=== PATIENT | female | born 1960 | race Caucasian/White ===

== ENCOUNTER → 2020-10-03 | Day surgery (SDC) | payer BC | LOC: MAMMO 06:54 | PROC: 0H9T3ZX Drainage of Right Breast, Percutaneous Approach, Diagnostic (ICD-10-PCS; principal; 2020-10-03) | DX: C50.411 Malignant neoplasm of upper-outer quadrant of right female breast (principal) | CPT/HCPCS: 19081; 88305; 88341; 88342 ==